=== PATIENT | male | born 2000 | race Hispanic/Latino ===

== ENCOUNTER 2022-08-03 20:03 | Emergency (ER) | payer OTHER ==
[~2022-08-03] VITALS: Ht 167.6 cm; Wt 59.0 kg
[2022-08-03] MEDS ORDERED: ACETAMINOPHEN 325 MG TAB PO ONE (20:15)
[2022-08-03] MEDS ORDERED: ACETAMINOPHEN 325 MG TAB ONE (20:28)
[2022-08-03 21:42] VITALS: O2SAT 98
== END 2022-08-03 21:43 | disposition home or self-care (01) ==
LOC: FSED 20:06
DX: S02.2XXA Fracture of nasal bones, initial encounter for closed fracture (principal); W51.XXXA Accidental striking against or bumped into by another person, initial encounter; Y93.67 Activity, basketball; Y92.310 Basketball court as the place of occurrence of the external cause
CPT/HCPCS: 70486; 99283